=== PATIENT | male | born 1995 | race Caucasian/White ===

== ENCOUNTER 2019-06-26 15:56 | Outpatient (CLI) | payer BC ==
--- NOTE | 2019-06-26 16:28 | RAD ---
EXAM: LEFT FOOT THREE VIEWS: 06/26/19 HISTORY: Left foot pain. FINDINGS: There is a transverse linear lucency through the medial sesamoid of the first metatarsophalangeal claudio nt. This is very common place for a bifid sesamoid although if the patient is point tender to this re gion, conceivably this could represent a transverse fracture. If that is a strong concern, a follow-u p MRI exam might give additional information in this regard. No evidence for other acute fracture or dislocation. IMPRESSION: Slightly irregularly lucency through the mid portion of the medial sesamoid of the first metatarsopha langeal joint. This is a very common location for a bifid sesamoid although, if the patient is point tender to this region, this could conceivably represent a fracture, if that is a clinical dilemma, a follow-up MRI study would certainly help further evaluate that. No evidence for other acute fracture or dislocation. POS: [facility]
== END 2019-06-26 15:57 | disposition home or self-care (01) ==
LOC: BICRAD 15:56
PROVIDERS: ATTEND Family Medicine
DX: M79.672 Pain in left foot (principal); R93.7 Abnormal findings on diagnostic imaging of other parts of musculoskeletal system